=== PATIENT | female | born 1990 | race Caucasian/White ===

== ENCOUNTER 2023-03-02 18:04 | Emergency (ER) | payer MEDICAID ==
[~2023-03-02] VITALS: Ht 167.6 cm; Wt 52.2 kg
[2023-03-02 18:05] VITALS: BP_SYST 134
--- NOTE | 2023-03-02 18:05 | NUR ---
BROUGHT IN TO BED #7 AND TRIAGED. REPORT GIVEN TO KIMMY
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
--- NOTE | 2023-03-02 18:40 | NUR ---
DR. WELLER AT BEDSIDE. PT ASSESSED, RECTAL AND PERNIEAL AREA ASSESSED WITH THIS NURSE AT BEDSIDE.
[2023-03-02] MEDS ORDERED: ONDANSETRON 4 MG ODT TAB PO ONE (19:00)
[2023-03-02] MEDS ORDERED: HYDROcodone/ACETAMIN 5-325 MG TAB (NORCO/ VICODIN) PO ONE (19:00)
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
--- NOTE | 2023-03-02 19:25 | NUR ---
ENDORSED PT TO DESIRE KAY. ALL QUESTIONS AND CONCERNS ADDRESSED.
[2023-03-02 19:53] LABS: BASOPHILS % (AUTO) 0.3 % (0.0-2.0); EOSINOPHILS # (AUTO) 0.1 K/uL (0.0-0.4); EOSINOPHILS % (AUTO) 1.3 % (0.0-4.0); HEMATOCRIT 41.6 % (36-48); HEMOGLOBIN 13.8 g/dL (12.0-16.0); LYMPHOCYTES # (AUTO) 2.3 K/uL (1.0-5.5); LYMPHOCYTES % (AUTO) 37.8 % (20.5-51.5); MEAN CORPUSCULAR HEMOGLOBIN 30 pg (27-31); MEAN CORPUSCULAR HGB CONC 33 % (32-36); MEAN CORPUSCULAR VOLUME 91 fL (79.0-98.0); MONOCYTES # (AUTO) 0.4 K/uL (0.0-1.0); NEUTROPHILS # (AUTO) 3.3 K/uL (1.8-7.7); NEUTROPHILS % (AUTO) 53.6 % (40.0-70.0); PLATELET COUNT (AUTO) 214 K/uL (130-430); RED BLOOD CELL COUNT(AUTO) 4.58 MIL/uL (4.2-6.2); RED CELL DISTRIBUTION WIDTH 13.8 % (9.0-15.0); WHITE BLOOD COUNT (AUTO) 6.2 K/uL (4.8-10.8)
[2023-03-02 19:57] LABS: BILIRUBIN,URINE NEGATIVE (NEGATIVE); BLOOD, URINE NEGATIVE (NEGATIVE); CLARITY/URINE CLEAR (CLEAR); COLOR,URINE YELLOW (YELLOW); GLUCOSE,URINE NEGATIVE (NEGATIVE); KETONES,URINE NEGATIVE (NEGATIVE); LEUKOCYTE ESTERASE ,URINE 1+ (NEGATIVE); NITRITE, URINE NEGATIVE (NEGATIVE); PROTEIN URINE NEGATIVE (NEGATIVE); UROBILINOGEN,URINE 0.2 (0.2-1.0)
[2023-03-02 20:02] LABS: CALCIUM 8.7 mg/dL (8.4-11.0); CREATININE 0.76 mg/dL (0.55-1.30)
[2023-03-02 20:07] LABS: ALBUMIN 3.5 g/dL (3.4-4.8); TOTAL BILIRUBIN 0.2 mg/dL (0.0-1.0)
[2023-03-02 20:08] LABS: BACTERIA,URINE FEW /HPF (None Seen); HCG,QUAL RESULT NEGATIVE (NEGATIVE); MUCUS,URINE 1+ /LPF (None Seen); RBC,URINE NONE SEEN /HPF (0-3)
[2023-03-02] MEDS ORDERED: HYDR-3917 PO (21:26)
[2023-03-02] MEDS ORDERED: ONDA-8 TL (21:26)
[2023-03-02] MEDS ORDERED: NITR-85 PO (21:26)
[2023-03-02 21:53] VITALS: BP_SYST 123
--- NOTE | 2023-03-02 21:53 | NUR ---
Patient given written and verbal discharge instructions and verbalizes understanding. ER DR WELLER discussed with patient the results and treatment provided. Patient in stable condition. ID arm band removed. Rx of NORCO,MACROBID,ZOFRAN given. Patient educated on pain management and to follow up with PMD. Pain Scale 2/10. Opportunity for questions provided and answered. Medication side effect fact sheet provided.
[2023-03-06 19:06] LABS: FTA-Ab (T PALLIDUM) Non Reactive (Non Reactive)
== END 2023-03-02 21:53 | disposition home or self-care (01) ==
LOC: SED 18:04
DX: S05.12XA Contusion of eyeball and orbital tissues, left eye, initial encounter (principal); T74.21XA Adult sexual abuse, confirmed, initial encounter; Z69.11 Encounter for mental health services for victim of spousal or partner abuse; N39.0 Urinary tract infection, site not specified; J45.909 Unspecified asthma, uncomplicated; Z88.0 Allergy status to penicillin; Z88.8 Allergy status to other drugs, medicaments and biological substances; Z79.899 Other long term (current) drug therapy; Y08.89XA Assault by other specified means, initial encounter; Y93.89 Activity, other specified; Y92.89 Other specified places as the place of occurrence of the external cause; Y99.8 Other external cause status
CPT/HCPCS: 86701; 86702; 80053; 81000; 84703; 85025; 87086; 87210; 36415; 70450; 70486; 76376; 99284; 87491; 86592; 86780; Q0162